=== PATIENT | male | born 1975 | race Asian ===

== ENCOUNTER 2016-12-22 11:10 | Day surgery (SDC) | payer OTHER ==
[2016-12-21 10:49] VITALS: BMI 27.6
[2016-12-22] MEDS ORDERED: DEXAMETHASONE SOD PHOSPHATE 4 MG/1 ML VIAL ONE (14:14)
[2016-12-22] MEDS ORDERED: KETOROLAC TROMETHAMINE 30 MG/1 ML VIAL ONE (14:14)
[2016-12-22] MEDS ORDERED: ceFAZolin SODIUM 1 GM VIAL ONE (14:14)
[2016-12-22] MEDS ORDERED: LIDOCAINE HCL/PF 2% SDV 5ML VIAL ONE (14:14)
[2016-12-22] MEDS ORDERED: PROPOFOL 20 ML ONE (14:15)
[2016-12-22] MEDS ORDERED: ROCURONIUM BROMIDE 50 MG/5 ML VIAL ONE (14:15)
[2016-12-22] MEDS ORDERED: MIDAZOLAM HCL 2 MG/2 ML SINGLE DOSE VIAL ONE (14:20)
[2016-12-22] MEDS ORDERED: ceFAZolin SODIUM 1 GM VIAL IVPB ONE (14:27)
[2016-12-22] MEDS ORDERED: BUPIVACAINE HCL/PF 0.5% (5MG/ML) 10 ML VIAL ONE (14:40)
[2016-12-22] MEDS ORDERED: ePHEDrine SULFATE 50 MG/1 ML AMPULE ONE (15:07)
[2016-12-22] MEDS ORDERED: BUPIVACAINE HCL/PF 0.5% (5MG/ML) 10 ML VIAL IJ ONE (15:30)
[2016-12-22] MEDS ORDERED: GLYCOPYRROLATE 0.2 MG/1 ML VIAL ONE ×2 (16:32)
[2016-12-22] MEDS ORDERED: NEOSTIGMINE METHYLSULFATE 0.5 MG/ML - 10 ML MDV ONE (16:32)
[2016-12-22] MEDS ORDERED: oxyCODONE HCL 5 MG TABLET PO PRN (16:54)
[2016-12-22] MEDS ORDERED: ONDANSETRON 4 MG/2 ML VIAL IVPUSH PRN (16:54)
[2016-12-22] MEDS ORDERED: PROMETHAZINE HCL 25 MG/1 ML VIAL IVPUSH PRN (16:54)
--- NOTE | 2016-12-22 17:24 | HP ---
History & Physical Update - History History: No Change - Physical Physical: No Change - Assessment Assessment: No Change - Plan Plan: No Change
[2016-12-22 17:25] VITALS: TEMP 98
--- NOTE | 2016-12-22 17:28 | OP ---
Operative Note - Note: Operative Date: 12/22/16 Pre-Operative Diagnosis: Right inguino-scrotal hernia Operation: Robotic RIH repair with mesh Findings: large right inguino-scrotal hernia containing omentum Implants: Progrip mesh Post-Operative Diagnosis: Same as Pre-op Surgeon: Shiva Murphy Executive Sales Manager: Wilder Garg Anesthesia: General Estimated Blood Loss (mls): 5 Operative Report Dictated: Yes
[2016-12-22 19:01] VITALS: BP 132/86; PULSE 90
--- NOTE | 2016-12-23 09:05 | OP ---
DATE OF OPERATION: 12/22/2016 PROCEDURE: Robotic-assisted laparoscopic right inguinal hernia repair with mesh. PREOPERATIVE DIAGNOSIS: Right inguinoscrotal hernia. POSTOPERATIVE DIAGNOSIS: Right inguinoscrotal hernia. SURGEON: Shiva Murphy MD REVENUE STAMP CUTTER: Wilder Garg PA-C ANESTHESIA: General endotracheal. INDICATIONS FOR PROCEDURE: This is a 41-year-old male who presents with [id number]-1-years' history of right inguinal bulge which was gradually increasing in size and now has been chronically incarcerated down to the scrotum. On physical exam, patient has a partially reducible inguinoscrotal hernia which was nontender. So, the patient was advised robotic-assisted laparoscopic repair of the hernia, and consent was obtained after discussing the risks, benefits, and alternatives to the procedure. DESCRIPTION OF PROCEDURE: Patient was brought to the operating room and placed in supine position. General endotracheal anesthesia was then administered. The abdomen was prepped and draped in usual sterile fashion. Using 0.5% Marcaine, local anesthesia was administered at the proposed incision site. The peritoneal cavity was entered using the Veress needle technique via an 8-mm supraumbilical incision to the right of the midline. Pneumoperitoneum was established. An 8-mm port was inserted, followed by insertion of the 8-mm 30-degree 3D laparoscope. The peritoneal cavity was carefully inspected and was noted to be free of inadvertent injury. Two other 8-mm ports were inserted on each side of the midline, 8 mm away from the middle port at the same level under direct vision. The patient was then placed in a steep Trendelenburg position. The target organ was set, and the robotic arms were docked. The fenestrated bipolar was inserted at the left-sided port, and the EndoWrist morteza connected to monopolar cautery were inserted at the right- sided port. The undersigned then scrubbed out to commence the console part of the procedure. The right inguinal canal was noted to contain the omentum, and this was readily reduced. The left inguinal region was noted to be free of hernia. The parietal peritoneum was then incised at the level of the anterior-superior iliac spine towards the median umbilical ligament. The preperitoneal pocket was then created by combined sharp and blunt dissection with the fenestrated bipolar and the EndoWrist morteza. The dissection was carried laterally towards the anterior superior iliac spine, medially towards the underside of the symphysis pubis. The large hernia sac was carefully retracted towards the peritoneal cavity using the robotic instruments. Due to its large size, the hernia sac was transected as distal as possible using the EndoWrist morteza connected to monopolar cautery. The hernia sac was then dissected away from the spermatic cord structures. The spermatic vessel and the vas deferens were properly identified. This dissection was carried as proximal as possible with at least 5 cm away from the severely attenuated internal ring. After adequate dissection and mobilization of the peritoneal reflection was achieved, a 10 x 15 cm ProGrip mesh was deployed to patch the hernia defect with at least 5 cm circumferential margins. The medial edge of the mesh was deployed towards the underside of the symphysis pubis and the lateral edge was deployed towards the anterior-superior iliac spine. After deployment was deemed satisfactory, the preperitoneal pocket was closed with a continuous V-Loc 2-0 absorbable suture. The peritoneal cavity was again carefully inspected and was noted to be free of active bleeding or any abnormal fluid. The instruments were removed, and the robotic arms were undocked. The pneumoperitoneum was evacuated, and the ports were removed. The wounds were closed with subcuticular Biosyn 4-0 sutures, reinforced with Dermabond. A scrotal support was applied, and the patient was successfully extubated. Patient was transferred to the postanesthesia care unit in satisfactory condition. Estimated blood loss was about 5 mL. Wound class clean. The patient received 2 g of Ancef prior to the start of the procedure. Alison [id number] MTDD
--- NOTE | 2016-12-25 11:02 | SURG ---
Surgery Waxing Machine Operator Note Waxing Machine Operator: Wilder Garg PA-C Date of Service: 12/25/16 Diagnosis: Right inguino-scrotal hernia Procedure: Robotic right inguinal hernia repair with PROGRIP mesh I was present for the entirety of the operative procedure. For further detail, please refer to operative report. Visit type - Case Type Case Type: Scheduled Admission - New patient This patient is new to me today: Yes Date on this admission: 12/25/16
== END 2016-12-22 19:22 | disposition home or self-care (01) ==
LOC: JASU-SURG 11:10
PROVIDERS: ATTEND Surgery
PROC: 8E0W4CZ Robotic Assisted Procedure of Trunk Region, Percutaneous Endoscopic Approach (ICD-10-PCS; 2016-12-22)
PROC: 0YU54JZ Supplement Right Inguinal Region with Synthetic Substitute, Percutaneous Endoscopic Approach (ICD-10-PCS; principal; 2016-12-22 13:30)
DX: K40.90 Unilateral inguinal hernia, without obstruction or gangrene, not specified as recurrent (principal)
CPT/HCPCS: 49650; S2900; 94760

== ENCOUNTER 2023-07-18 09:14 | Emergency (ER) | payer OTHER ==
[2023-07-18 09:25] VITALS: BP 103/53; PULSE 62; RESP 16; TEMP 98.3; BMI 29.2
[2023-07-18] MEDS ORDERED: LIDOCAINE 4% PATCH TP ONE (09:33)
[2023-07-18] MEDS ORDERED: diazePAM 5 MG TABLET ONE (09:34)
[2023-07-18] MEDS ORDERED: KETOROLAC TROMETHAMINE 30 MG/1 ML VIAL ONE (09:34)
[2023-07-18] MEDS: LIDOCAINE 5% TOPICAL PATCH TP ONE (09:40)
[2023-07-18] MEDS: KETOROLAC TROMETHAMINE 30 MG/1 ML VIAL IM ONE (09:41)
[2023-07-18] MEDS: diazePAM 5 MG TABLET PO ONE (09:41)
[2023-07-18] MEDS ORDERED: LIDOCAINE PATCH REMOVAL MC ONE (22:00)
== END 2023-07-18 10:40 | disposition home or self-care (01) ==
LOC: JERFT 09:14
PROC: 3E0233Z Introduction of Anti-inflammatory into Muscle, Percutaneous Approach (ICD-10-PCS; principal; 2023-07-18)
DX: M54.50 Low back pain, unspecified (principal); M62.830 Muscle spasm of back; X50.0XXA Overexertion from strenuous movement or load, initial encounter
CPT/HCPCS: 99284-25